=== PATIENT | female | born 1965 | race Caucasian/White ===

== ENCOUNTER → 2018-02-03 | Outpatient (CLI) | payer MEDICARE ==
[~2018-02-03] MED LIST: LEVO75TA73 PO; METO25TA93 PO
--- NOTE | 2018-02-04 10:27 | RADIOLOGY IMAGING REPORT ---
FACILITY: [facility] [place] PATIENT NAME: QING MONTES DE OCA : [id number] MR: [id number] V: [id number] EXAM DATE: ORDERING PHYSICIAN: REGGIE MORRIS TECHNOLOGIST: Pina Frost PROCEDURE:BILATERAL DIGITAL SCREENING MAMMOGRAM WITH CAD ASSISTED INTERPRETATION & 3D TOMOSYNTHESIS COMPARISON:Prior mammograms 12/26/16. INDICATIONS:screening FINDINGS: A small amount of mildly heterogeneous fibroglandular tissue is seen throughout the breasts. The parenchymal pattern has remained stable allowing for difference in mammographic technique & patient positioning. There is no evidence of malignant appearing mass, malignant appearing calcifications or other secondary sign of malignancy in either breast. DIAGNOSTIC CATEGORY 1--NEGATIVE. RECOMMENDATIONS: ROUTINE MAMMOGRAM AND CLINICAL EVALUATION. IMPRESSION: BIRADS 1: Negative No significant abnormality is seen. Dictated by: Ana Cristina Taylor M.D. on 02/03/2018 at 16:07 Transcribed by: HERACLIO on 02/03/2018 at 16:13 Approved by: Ana Cristina Taylor M.D. on 02/04/2018 at 10:27 [facility]
== END ==
LOC: MAMO 01:20
PROVIDERS: ATTEND Family Medicine
DX: Z12.31 Encounter for screening mammogram for malignant neoplasm of breast (principal)
CPT/HCPCS: 77063; 77067

== ENCOUNTER 2018-04-01 01:54 | Day surgery (SDC) | payer MEDICARE ==
[~2018-04-01] VITALS: Ht 165.1 cm; Wt 71.2 kg
[~2018-04-01 01:54] MED LIST changes: +SIMV-49 PO
[2018-04-01] MEDS ORDERED: PROPOFOL EMUL(*) 10MG/ML 20 ML 40 ML ONE (08:27)
[2018-04-01 08:52] VITALS: BP 144/92
[2018-04-01] MEDS ORDERED: NORMOSOL R SOLN(*) 1000 ML BAG 1,000 ML IV PRN (09:00)
[2018-04-01] MEDS ORDERED: LIDOCAINE/SOD BICARB 8.4% SYR ID ONE (09:00)
[2018-04-01 11:00] VITALS: BP 98/61
[2018-04-01 11:15] VITALS: BP 100/63
[2018-04-01 11:30] VITALS: BP 117/87
[2018-04-01 11:45] VITALS: BP 136/93
[2018-04-01 11:47] VITALS: BP 141/99
== END 2018-04-01 12:20 | disposition short-term general hospital (02) ==
LOC: OR 01:54
PROVIDERS: ATTEND Internal Medicine Gastroenterology
DX: Z12.11 Encounter for screening for malignant neoplasm of colon (principal); K64.9 Unspecified hemorrhoids; K57.30 Diverticulosis of large intestine without perforation or abscess without bleeding
CPT/HCPCS: 00812; G0121; J2704

== ENCOUNTER → 2019-03-17 | Outpatient (CLI) | payer MEDICARE ==
--- NOTE | 2019-03-17 16:04 | RADIOLOGY IMAGING REPORT ---
FACILITY: [facility] PATIENT NAME: QING MONTES DE OCA : [id number] MR: [id number] V: [id number] EXAM DATE: ORDERING PHYSICIAN: REGGIE MORRIS TECHNOLOGIST: Pina Frost PROCEDURE: BILATERAL DIGITAL SCREENING MAMMOGRAM WITH CAD ASSISTED INTERPRETATION & 3D TOMOSYNTHESIS REASON FOR STUDY: Screening FAMILY HISTORY OF BREAST CANCER: Maternal cousin BREAST PROCEDURES/TREATMENTS: None COMPARISON: 02/03/18, 12/26/16 VIEWS OBTAINED: Bilateral 2D & 3D full field CC & MLO projections BREAST DENSITY: There are scattered areas of fibroglandular density throughout the breasts. MAMMOGRAM FINDINGS: The parenchymal pattern has remained stable allowing for difference in mammographic technique & patient positioning. Ventriculostomy tubing is again noted along the medial aspect posterior depth of the Right breast on the Right CC view. IMPRESSION: BIRADS 2: Benign finding. DIAGNOSTIC CATEGORY 2--BENIGN FINDING. RECOMMENDATIONS: ROUTINE MAMMOGRAM AND CLINICAL EVALUATION. Dictated by: Ana Cristina Taylor M.D. on 03/17/2019 at 10:14 Transcribed by: JANELLE on 03/17/2019 at 11:26 Approved by: Ana Cristina Taylor M.D. on 03/17/2019 at 16:03 [facility]
== END ==
LOC: MAMO 01:00
PROVIDERS: ATTEND Family Medicine
DX: Z12.31 Encounter for screening mammogram for malignant neoplasm of breast (principal)
CPT/HCPCS: 77063; 77067